=== PATIENT | male | born 1995 | race African-American/Black ===

== ENCOUNTER 2017-01-08 19:29 | Emergency (ER) | payer OTHER ==
[2017-01-08 20:21] VITALS: BP 146/76; PULSE 94; TEMP 101.9; BMI 20.6
[2017-01-08] MEDS ORDERED: ONDANSETRON 4 MG/2 ML VIAL IVPB ONE (20:54)
[2017-01-08] MEDS ORDERED: ACETAMINOPHEN 325 MG TABLET (FP) PO ONE (20:54)
--- NOTE | 2017-01-08 20:54 | PDOC ---
History of Present Illness - General History Source: Patient Exam Limitations: No Limitations - History of Present Illness Initial Comments: 01/08/17 21:16 The patient is a 21-year-old male, with a significant past medical history of asthma, who presents to the ED with one day body aches, cough, and nausea. Pt reports having a fever of 101.6 degrees. He reports having one episode of vomiting today at the library. The patient denies any chills, diarrhea, or abdominal pain. The patient denies any shortness of breath or chest pain. <Carmita Woody - Last Filed: 01/08/17 21:16> <Antonia Willett - Last Filed: 01/09/17 02:34> - General Chief Complaint: Chest Pain Stated Complaint: CHEST PAIN/NAUSEA Time Seen by Provider: 01/08/17 20:38 Past History <Carmita Woody - Last Filed: 01/08/17 21:16> - Psycho/Social/Smoking Cessation Hx Suicidal Ideation: No Smoking History: Unknown if ever smoked Information on smoking cessation initiated: No Hx Alcohol Use: No Drug/Substance Use Hx: Yes <Antonia Willett - Last Filed: 01/09/17 02:34> - Past Medical History Allergies/Adverse Reactions: Allergies Allergy/AdvReac Type Severity Reaction Status Date / Time No Allergy Information Allergy Verified 01/08/17 20:25 Available Home Medications: Ambulatory Orders Levofloxacin [Levaquin] 750 mg PO DAILY #7 tab 01/09/17 Review of Systems - Review of Systems Able to Perform ROS?: Yes Comments:: 01/08/17 21:17 GENERAL/CONSTITUTIONAL: No chills. No weakness. +fever HEAD, EYES, EARS, NOSE AND THROAT: No change in vision. No ear pain or discharge. No sore throat. CARDIOVASCULAR: No chest pain or shortness of breath. RESPIRATORY: No hemoptysis. +cough GASTROINTESTINAL: No diarrhea or constipation. +nausea, vomiting, GENITOURINARY: No dysuria, frequency, or change in urination. MUSCULOSKELETAL: No joint swelling or pain. +body aches SKIN: No rash NEUROLOGIC: No headache, vertigo, loss of consciousness, or change in strength/ sensation. ENDOCRINE: No increased thirst. No abnormal weight change. HEMATOLOGIC/LYMPHATIC: No anemia, easy bleeding, or history of blood clots. ALLERGIC/IMMUNOLOGIC: No hives or skin allergy. <Carmita Woody - Last Filed: 01/08/17 21:16> *Physical Exam - Vital Signs Last Vital Signs Temp Pulse Resp BP Pulse Ox 101.9 F H 94 H 16 146/76 97 01/08/17 20:10 01/08/17 20:10 01/08/17 20:10 01/08/17 20:10 01/08/17 20:10 <Carmita Woody - Last Filed: 01/08/17 21:16> - Vital Signs Last Vital Signs Temp Pulse Resp BP Pulse Ox 101.9 F H 94 H 16 146/76 97 01/08/17 20:10 01/08/17 20:10 01/08/17 20:10 01/08/17 20:10 01/08/17 20:10 <Antonia Willett - Last Filed: 01/09/17 02:34> ED Treatment Course - LABORATORY CBC & Chemistry Diagram: 01/08/17 21:08 01/08/17 21:08 <Carmita Woody - Last Filed: 01/08/17 21:16> - LABORATORY CBC & Chemistry Diagram: 01/08/17 21:08 01/08/17 21:08 <Antonia Willett - Last Filed: 01/09/17 02:34> Medical Decision Making - Medical Decision Making 01/08/17 20:50 21 yo male with h/o asthma, here wtih c/o fever chills myalgia. started yesterday, c/o vomiting today. no sick contacts. has been coughing, nonproductive. also c/o generalized abd pain . did not take anything for pain or fever today. states fever 101. no urinary complaints. on exam wheezing and crackles right lung , heart RRR no mr/g. abd soft NT ND. ext WWP. skin warm and dry. differntial: ashtma, bronchitis, flu, viral gastritis, plan labs zofran ivf, cxr r/o pna duoneb and tylenol. reassess. <Antonia Willett - Last Filed: 01/09/17 02:34> *DC/Admit/Observation/Transfer - Transfer to Acute Care Facility Transfer comment: 01/08/17 21:21 GENERAL: Awake, alert, and fully oriented, in no acute distress HEAD: No signs of trauma EYES: PERRLA, EOMI, sclera anicteric, conjunctiva clear ENT: Auricles normal inspection, nares patent, oropharynx clear without exudates. Moist mucosa. NECK: Normal ROM, supple, no lymphadenopathy, JVD, or masses LUNGS: No crackles. Wheezes on right side. HEART: Regular rate and rhythm, normal S1 and S2, no murmurs, rubs or gallops ABDOMEN: Soft, nontender, normoactive bowel sounds. No guarding, no rebound. No masses EXTREMITIES: Normal range of motion, no edema. No clubbing or cyanosis. No cords, erythema, or tenderness NEUROLOGICAL: Awake, alert. SKIN: Warm, Dry, normal turgor, no rashes or lesions noted - Attestations Scribe Attestion: 01/08/17 21:23 Documentation prepared by Carmita Woody, acting as electromedical equipment technician for Antonia Willett MD. <Carmita Woody - Last Filed: 01/08/17 21:16> - Discharge Dispostion Admit: No <Antonia Willett - Last Filed: 01/09/17 02:34> Diagnosis at time of Disposition: Bronchitis - Prescriptions Prescriptions: Levofloxacin [Levaquin] 750 mg PO DAILY #7 tab - Patient Instructions Printed Discharge Instructions: Acute Bronchitis Additional Instructions: take levaquin 750 mg daily x 7 days. use albuterol 2 puffs every 4 hours as needed for coughing and wheezing.
[2017-01-08] MEDS ORDERED: ALBUTEROL SO4 2.5/IPRATROPIUM 0.5 INH SOL 3 ML VIAL.NEB. NEB ONE ×2 (20:55→21:14)
[2017-01-08] MEDS ORDERED: ACETAMINOPHEN 325 MG TABLET (FP) ONE (21:13)
[2017-01-08] MEDS ORDERED: ONDANSETRON *ODT* 4 MG TABLET ONE (21:14)
[2017-01-08 21:16] LABS: BASOPHIL 0.5 % (0-2.0); EOSINOPHIL 0.5 % (0-4.5); MCH 26.2 pg (25.7-33.7); MEAN CELL VOLUME 79.5 fl (80-96); MEAN PLT VOLUME 8.3 fl (7.5-11.1); PLATELET COUNT 165 K/MM3 (134-434); WHITE BLOOD COUNT 7.3 K/mm3 (4.0-10.0)
[2017-01-08 21:43] LABS: ALBUMIN 3.2 g/dl (3.4-5.0); ANION GAP 8 (8-16); BILIRUBIN,TOTAL 1.7 mg/dL (0.2-1.0); CALCIUM 8.4 mg/dL (8.5-10.1); CO2 25 mmol/L (21-32); COCKROFT - GAULT 112.45; CREATININE 1.1 mg/dL (0.7-1.3); GLUCOSE,RANDOM 90 mg/dL (74-106); SGOT/AST 24 U/L (15-37); SGPT/ALT 32 U/L (12-78); TOT PROT 6.2 g/dl (6.4-8.2)
[2017-01-08 21:44] LABS: ALK PHOS 108 U/L (45-117)
--- NOTE | 2017-01-09 12:32 | EKG ---
Test Reason : Blood Pressure : / mmHG Vent. Rate : 085 BPM Atrial Rate : 085 BPM P-R Int : 162 ms QRS Dur : 106 ms QT Int : 342 ms P-R-T Axes : 058 075 049 degrees QTc Int : 406 ms NORMAL SINUS RHYTHM POSSIBLE LEFT ATRIAL ENLARGEMENT BORDERLINE ECG NO PREVIOUS ECGS AVAILABLE Confirmed by KWAKU JARAMILLO MD ([id number]) on 01/09/2017 12:32:13 PM Referred By: Confirmed By:KWAKU JARAMILLO MD
== END 2017-01-09 06:26 | disposition home or self-care (01) ==
LOC: JER 19:29
PROC: 3E0F7GC Introduction of Other Therapeutic Substance into Respiratory Tract, Via Natural or Artificial Opening (ICD-10-PCS; principal; 2017-01-08)
PROC: 3E033GC Introduction of Other Therapeutic Substance into Peripheral Vein, Percutaneous Approach (ICD-10-PCS; 2017-01-08)
DX: J40 Bronchitis, not specified as acute or chronic (principal); Z59.0 Homelessness
CPT/HCPCS: 36415; 71020-TC; 80053; 85025; 93005; 93010; 99283-25

== ENCOUNTER 2017-09-12 01:34 | Emergency (ER) | payer OTHER ==
[2017-09-12 01:44] VITALS: BP 92/71; PULSE 92; TEMP 98.2; BMI 30.2
[2017-09-12] MEDS ORDERED: AZITHROMYCIN 250 MG TABLET PO ONE (02:01)
--- NOTE | 2017-09-12 02:01 | PDOC ---
History of Present Illness - General History Source: Patient <Jimmy Ayala - Last Filed: 09/12/17 02:10> - General History Source: Patient Exam Limitations: No Limitations - History of Present Illness Initial Comments: 09/12/17 02:14 The patient is a 22 year old male with no significant PMH who presents to the emergency department with a persistent dry cough beginning approximately 1 month ago and 1 day of abdominal cramping. The patient reports he was seen at [facility] recently for his dry cough and was told he had bronchitis. He reports his coughing has gotten so severe he has developed associated abdominal cramping. The patient also notes generalized malaise and body aches. The patient reports recent contact with people who have had the flu. The patient denies nasal congestion. The patient denies chest pain, shortness of breath, headache and dizziness. Denies fever, chills, nausea, vomit, diarrhea and constipation. Denies dysuria, frequency, urgency and hematuria. Allergies: NKA Past surgical history: None reported. Social history: No reported cigarette, alcohol, or drug use. PCP: None reported. <River Mueller - Last Filed: 09/12/17 02:15> - General Chief Complaint: Nausea/Vomiting Stated Complaint: ABDOMINAL PAIN/VOMITING Time Seen by Provider: 09/12/17 01:54 Past History - Suicide/Smoking/Psychosocial Hx Smoking History: Never smoked Have you smoked in the past 12 months: No Information on smoking cessation initiated: No Hx Alcohol Use: No Drug/Substance Use Hx: No <Jimmy Ayala - Last Filed: 09/12/17 02:10> <River Mueller - Last Filed: 09/12/17 02:15> - Past Medical History Allergies/Adverse Reactions: Allergies Allergy/AdvReac Type Severity Reaction Status Date / Time No Allergy Information Allergy Verified 01/08/17 20:25 Available Home Medications: Ambulatory Orders Albuterol Sulfate Inhaler - [Ventolin HFA Inhaler -] 2 inh PO Q4H PRN #1 inh levoFLOXacin [Levaquin] 750 mg PO DAILY #7 tab 01/09/17 Azithromycin [Zithromax -] 250 mg PO UTDICT #6 tab 09/12/17 Guaifenesin [Robitussin -] 200 mg PO Q4H #420 ml 09/12/17 Ibuprofen 800 mg PO TID #30 tablet 09/12/17 Oseltamivir Phosphate [Tamiflu -] 75 mg PO BID #10 capsule 09/12/17 Review of Systems - Review of Systems Able to Perform ROS?: Yes Comments:: 09/12/17 02:15 CONSTITUTIONAL: Absent: fever, chills, diaphoresis, generalized weakness, malaise, loss of appetite HEENT: Absent: rhinorrhea, nasal congestion, throat pain, throat swelling, difficulty swallowing, mouth swelling, ear pain, eye pain, visual Changes CARDIOVASCULAR: Absent: chest pain, syncope, palpitations, irregular heart rate, lightheadedness , peripheral edema RESPIRATORY: (+) Dry cough. Absent: cough, shortness of breath, dyspnea with exertion, orthopnea, wheezing, stridor, hemoptysis GASTROINTESTINAL: (+) Abdominal cramping. Absent: abdominal pain, abdominal distension, nausea, vomiting, diarrhea, constipation, melena, hematochezia GENITOURINARY: Absent: dysuria, frequency, urgency, hesitancy, hematuria, flank pain, genital pain MUSCULOSKELETAL: Absent: myalgia, arthralgia, joint swelling SKIN: Absent: rash, itching, pallor HEMATOLOGIC/IMMUNOLOGIC: Absent: easy bleeding, easy bruising, lymphadenopathy, frequent infections ENDOCRINE: Absent: unexplained weight gain, unexplained weight loss, heat intolerance, cold intolerance NEUROLOGIC: Absent: headache, focal weakness or paresthesias, dizziness, unsteady gait, seizure, mental status changes, bladder or bowel incontinence PSYCHIATRIC: Absent: anxiety, depression, suicidal or homicidal ideation, hallucinations. <River Mueller - Last Filed: 09/12/17 02:15> *Physical Exam - Vital Signs Last Vital Signs Temp Pulse Resp BP Pulse Ox 98.2 F 92 H 20 92/71 100 09/12/17 01:43 09/12/17 01:43 09/12/17 01:43 09/12/17 01:43 09/12/17 01:43 <Jimmy Ayala - Last Filed: 09/12/17 02:10> - Vital Signs Last Vital Signs Temp Pulse Resp BP Pulse Ox 98.2 F 92 H 20 92/71 100 09/12/17 01:43 09/12/17 01:43 09/12/17 01:43 09/12/17 01:43 09/12/17 01:43 - Physical Exam Comments: 09/12/17 02:15 GENERAL: Well developed, well nourished. Awake and alert. No acute distress. HEENT: Normocephalic, atraumatic. PERRLA, EOMI. No conjunctival pallor. Sclera are non- icteric. Moist mucous membranes. Oropharynx is clear. NECK: Supple. Full ROM. No JVD. Carotid pulses 2+ and symmetric, without bruits. No thyromegaly. No lymphadenopathy. CARDIOVASCULAR: Regular rate and rhythm. No murmurs, rubs, or gallops. Distal pulses are 2+ and symmetric. PULMONARY: No evidence of respiratory distress. Lungs clear to auscultation bilaterally. No wheezing, rales or rhonchi. ABDOMINAL: Soft. Non-tender. Non-distended. No rebound or guarding. No organomegaly. Normoactive bowel sounds. MUSCULOSKELETAL Normal range of motion at all joints. No bony deformities or tenderness. No CVA tenderness. EXTREMITIES: No cyanosis. No clubbing. No edema. No calf tenderness. SKIN: Warm and dry. Normal capillary refill. No rashes. No jaundice. NEUROLOGICAL: Alert, awake, appropriate. Cranial nerves 2-12 intact. No deficits to light touch and temperature in face, upper extremities and lower extremities. No motor deficits in the in face, upper extremities and lower extremities. Normoreflexic in the upper and lower extremities. Normal speech. Toes are downgoing bilaterally. Gait is normal without ataxia. PSYCHIATRIC: Cooperative. Good eye contact. Appropriate mood and affect. <River Mueller - Last Filed: 09/12/17 02:15> Medical Decision Making - Medical Decision Making 09/12/17 02:08 Dr. Ayala: The scribe's documentation has been prepared under my direction and personally reviewed by me in its entirery. I confirm that the note above accurately reflects all work, treatment, procedures, and medical decision making performed by me. <Jimmy Ayala - Last Filed: 09/12/17 02:10> *DC/Admit/Observation/Transfer <Jimmy Ayala - Last Filed: 09/12/17 02:10> - Attestations Scribe Attestion: 09/12/17 02:15 Documentation prepared by River Mueller, acting as medical records library professor for Jimmy Ayala DO. <River Mueller - Last Filed: 09/12/17 02:15> Diagnosis at time of Disposition: Bronchitis, Viral illness - Discharge Dispostion Disposition: HOME Condition at time of disposition: Stable - Prescriptions Prescriptions: Azithromycin [Zithromax -] 250 mg PO UTDICT #6 tab Guaifenesin [Robitussin -] 200 mg PO Q4H #420 ml Ibuprofen 800 mg PO TID #30 tablet Oseltamivir Phosphate [Tamiflu -] 75 mg PO BID #10 capsule - Patient Instructions Printed Discharge Instructions: DI for Acute Bronchitis, DI for Viral Syndrome Additional Instructions: Please take medications as directed. Follow up with your doctor by Friday for re-evaluation.
[2017-09-12] MEDS ORDERED: OSELTAMIVIR PHOSPHATE 75 MG CAPSULE PO ONE (02:02)
[2017-09-12] MEDS ORDERED: IBUPROFEN 400 MG TABLET (FP) PO ONE ×2 (02:04→02:11)
[2017-09-12] MEDS ORDERED: guaiFENesin 200 MG/10 ML 10 ML UNIT-DOSE CUPS PO ONE (02:08)
[2017-09-12] MEDS ORDERED: OSELTAMIVIR PHOSPHATE 75 MG CAPSULE ONE (02:10)
[2017-09-12] MEDS ORDERED: AZITHROMYCIN 250 MG TABLET ONE (02:11)
[2017-09-12] MEDS ORDERED: guaiFENesin/D-METHORPHAN HB 10 ML UNIT-DOSE CUPS ONE (02:11)
[2017-09-12] MEDS ORDERED: OSELTAMIVIR PHOSPHATE 75 MG CAPSULE PO SCH (10:00)
== END 2017-09-12 03:12 | disposition home or self-care (01) ==
LOC: JER 01:34
DX: J40 Bronchitis, not specified as acute or chronic (principal); J11.1 Influenza due to unidentified influenza virus with other respiratory manifestations; B34.9 Viral infection, unspecified
CPT/HCPCS: 99281-25